=== PATIENT | female | born 1955 | race Hispanic/Latino ===

== ENCOUNTER 2018-06-05 12:34 | Observation (INO) | payer MEDICARE, BC ==
[2018-06-05 12:34] VITALS: BMI 33.5
[~2018-06-05 12:34] MED LIST: Gadodiamide 287 mg/ml 20 ml IV ONE
--- NOTE | 2018-06-05 12:51 | C.PDOC ---
History Of Present Illness 63 y/o female,w/PMhx of HTN, diabetes, hypercholesterolemia, thyroid cancer with thyroidectomy and now on synthroid, presents to the ER for evaluation of elevated blood pressure levels and tachycardia. Patient states that she was flor luated by yesterday and he gave her prescription for labs, MRI Brain, and MRI Head and Neck. Patient reports that she was also evaluated by her PMD in the morning today. noted that she had systolic BP in the 200's and she was tachycardic with HR in the 130's. Patient notes that she has distal tremors in bilateral arms. She states that her oncologist at [facility] is concerned that she could have de-supression of tumor. She is on Synthroid and the dosage was recently changed from 136 mcg to 125 mcg. She notes that she has diarrhea without recent abx use. Denies having fever,chills, CP,SOB, nausea, vomiting, abdominal pain, dysuria, hematuria,recent travel, bug bites,ETOH and other drug use. Time Seen by Provider: 06/05/18 12:41 Chief Complaint (Nursing): High Blood Pressure History Per: Patient History/Exam Limitations: no limitations Onset/Duration Of Symptoms: Hrs Current Symptoms Are (Timing): Still Present Severity: Moderate Past Medical History Reviewed: Historical Data, Nursing Documentation, Vital Signs - Medical History PMH: Asthma (NEVER HOSPITALIZED), Fractures (LEFT HUMERUS-SURGERY DONE), HTN Denies: Chronic Kidney Disease Other Surgeries: Hx of surgeries Family History: States: No Known Family Hx - Social History Hx Alcohol Use: No Hx Substance Use: No - Immunization History Hx Tetanus Toxoid Vaccination: No Hx Influenza Vaccination: No Review Of Systems Constitutional: Positive for: Other (elevated blood pressure). Negative for: Fever, Chills, Sweats, Weakness, Malaise Eyes: Negative for: Pain, Vision Change, Conjunctivae Inflammation ENT: Negative for: Ear Discharge, Nose Pain, Nose Congestion, Mouth Pain, Mouth Swelling, Throat Pain Cardiovascular: Positive for: Other (tachycardia). Negative for: Chest Pain, Palpitations, Orthopnea, Paroxysmal Noc. Dyspnea, Edema, Light Headedness Respiratory: Negative for: Cough, Shortness of Breath, Hemoptysis, SOB with Excertion, Pleuritic Pain, Sputum, Wheezing Gastrointestinal: Positive for: Diarrhea. Negative for: Nausea, Vomiting, Abdominal Pain, Constipation, Melena, Hematochezia, Hematemesis, Rectal Pain Genitourinary: Negative for: Dysuria, Frequency, Incontinence, Hematuria, Vaginal Discharge, Vaginal Bleeding Musculoskeletal: Negative for: Neck Pain, Shoulder Pain, Arm Pain, Back Pain, Hand Pain, Leg Pain Skin: Negative for: Rash, Lesions Neurological: Positive for: Other (tremors in bilateral arms). Negative for: Weakness, Numbness Physical Exam - Physical Exam Appears: Well, Non-toxic, No Acute Distress Skin: Warm, Dry Head: Atraumatic, Normacephalic Eye(s): bilateral: Normal Inspection, PERRL, EOMI Nose: Normal Oral Mucosa: Moist Tongue: Normal Appearing Lips: Normal Appearing Teeth: Normal Dentition Gingiva: Normal Appearing Neck: Trachea Midline, Supple, Other (no meningeal signs) Lymphatic: No Adenopathy Chest: Symmetrical Cardiovascular: Rhythm Regular, No Friction Rub, No Murmur, No JVD Respiratory: Normal Breath Sounds, No Rales, No Rhonchi, No Wheezing Gastrointestinal/Abdominal: Normal Exam, Soft, No Tenderness, No Guarding, No Rebound Back: No CVA Tenderness, No Vertebral Tenderness Extremity: Normal ROM, No Pedal Edema, No Swelling Neurological/Psych: Oriented x3, Normal Speech, Normal Cognition, Normal Motor Gait: Steady ED Course And Treatment - Laboratory Results Result Diagrams: 06/06/18 07:22 06/06/18 07:22 Medical Decision Making Medical Decision Makin63 y/o female,w/PMhx of HTN, diabetes, hypercholesterolemia, thyroid cancer with thyroidectomy, presents to the ER for evaluation of elevated blood pressure levels and tachycardia. Impression: Pheochromocytoma vs. Thyroid Issue Plan: --Labs --UA --MRI-Brain --MRA-Head --MRA-Neck 1549 no indication of thyroid storm by vitals however given hx of elevated pressures, ?residual CA, likely endocrine issue Appreciate consult w/ DR. florian: to see pt, MRI / MRAs ordered as directed appreciate consult w/ Prince Meek: to admit to his service (dr. rogers is PMD, admits to hospitalist.) pt in NAD, agreeable to plan Disposition - Disposition Disposition: HOSPITALIZED Disposition Time: 15:49 Condition: GOOD - Clinical Impression Clinical Impression: Endocrine disorder - Scribe Statement The provider has reviewed the documentation as recorded by the Scribe Tiffanie Mc Provider Attestation: All medical record entries made by the Scribe were at my direction and personally dictated by me. I have reviewed the chart and agree that the record accurately reflects my personal performance of the history, physical exam, medical decision making, and the department course for this patient. I have also personally directed, reviewed, and agree with the discharge instructions and disposition.
[2018-06-05 14:57] LABS: BASO % 0.4 % (0.0-2.0); EOS # 0.1 K/uL (0.0-0.7); EOS % 0.9 % (0.0-4.0); HEMOGLOBIN 14.3 g/dL (11.0-16.0); LYMPH % 31.9 % (20.0-40.0); MEAN CORPUSCULAR HEMOGLOBIN 31.9 pg (27.0-31.0); MEAN CORPUSCULAR HGB CONC 33.9 g/dL (33.0-37.0); MEAN PLATELET VOLUME 9.5 fL (7.2-11.7); MONO # 0.3 K/uL (0.0-0.8); MONO % 4.6 % (0.0-10.0); NEUT # 3.8 K/uL (1.8-7.0); NEUT % 62.2 % (50.0-75.0); NRBC % 0.2 % (0.0-2.0); RBC 4.5 Mil/uL (3.80-5.20); RED CELL DISTRIBUTION WIDTH 13.3 % (11.5-14.5); WHITE BLOOD COUNT 6.2 K/uL (4.8-10.8)
[2018-06-05 15:01] LABS: MEAN CELL VOLUME 94.1 fL (81.0-99.0)
[2018-06-05 15:07] LABS: ALB/GLOB RATIO 1.6 (1.0-2.1); ALBUMIN 5.3 g/dL (3.5-5.0); ALT/SGPT 50 U/L (9-52); AST/SGOT 37 U/L (14-36); BLOOD UREA NITROGEN 12 mg/dL (7-17); CALCIUM 9.8 mg/dl (8.6-10.4); GFR NON-AFRICAN AMERICAN > 60
[2018-06-05 15:38] LABS: T3 1.37 nmol/L (1.49-2.60)
--- NOTE | 2018-06-05 16:03 | CP.PCM.HP ---
<Corbin Hui - Last Filed: 06/05/18 17:01> History of Present Illness - History of Present Illness History of Present Illness: 63 y/o female,w/PMhx of HTN, diabetes, hypercholesterolemia, thyroid cancer with thyroidectomy, presents to the ER for evaluation of elevated blood pressure levels and tachycardia. Patient has been on a high dose Synthroid 136 regimen as per her Endo-Oncologist at [facility] Dr Romeo for tumor suppression. She has followed up with him about these side effects however was kept on a high level due to concerns of de suppression of the thyroid tumor. She has been having symptoms of tremors, diarrhea and intense Migraines for the past 3 months. She went to be evaluated by yesterday as per the recommendation of at [facility]. Patient reports she was instructed by her PMD today to come to the ER. noted that she had systolic BP in the 200's and she was tachycardic with HR in the 130's. ROS: Pos: diarrrhea, tremors, headaches, hyperreflexia, Neg: fever,chills, CP,SOB, nausea, vomiting, abdominal pain, dysuria, h ematuria, numbness, tingling, recent travel, bug bites,ETOH and other drug use. PMHx: HTN, diabetes, hypercholesterolemia, thyroid cancer with thyroidectomy PSx: thyroidectomy 2018 FH: father lung CA SocHx: denies etoh, smoking, drug use Home Meds: Present on Admission - Present on Admission Any Indicators Present on Admission: No Review of Systems - Constitutional Constitutional: As Per HPI - EENT Eyes: As Per HPI Ears: As Per HPI Nose/Mouth/Throat: As Per HPI - Breasts Breasts: As Per HPI - Cardiovascular Cardiovascular: As Per HPI - Respiratory Respiratory: As Per HPI - Gastrointestinal Gastrointestinal: As Per HPI - Genitourinary Genitourinary: As Per HPI - Reproductive: Female Reproductive:Female: As Per HPI - Menstruation Menstruation: As Per HPI - Musculoskeletal Musculoskeletal: As Per HPI - Integumentary Integumentary: As Per HPI - Neurological Neurological: As Per HPI - Psychiatric Psychiatric: As Per HPI - Endocrine Endocrine: As Per HPI - Hematologic/Lymphatic Hematologic: As Per HPI Past Patient History - Past Medical History & Family History Past Medical History?: Yes - Past Social History Smoking Status: Never Smoked - CARDIAC Hx Hypertension: Yes - PULMONARY Hx Asthma: Yes (NEVER HOSPITALIZED) - NEUROLOGICAL Hx Neurological Disorder: No - HEENT Hx HEENT Problems: No - RENAL Hx Chronic Kidney Disease: No - ENDOCRINE/METABOLIC Hx Endocrine Disorders: Yes Hx Diabetes Mellitus Type 2: Yes Other/Comment: HX: THYROID NODULE - HEMATOLOGICAL/ONCOLOGICAL Hx Blood Disorders: No Hx Cancer: Yes (Thyroid) - INTEGUMENTARY Hx Dermatological Problems: No - MUSCULOSKELETAL/RHEUMATOLOGICAL Hx Fractures: Yes (LEFT HUMERUS-SURGERY DONE) - GASTROINTESTINAL Hx Gastrointestinal Disorders: Yes Hx Gastroesophageal Reflux: Yes - GENITOURINARY/GYNECOLOGICAL Hx Genitourinary Disorders: No - PSYCHIATRIC Hx Substance Use: No - SURGICAL HISTORY Hx Surgeries: Yes Hx Orthopedic Surgery: Yes (REPAIR FX. LEFT HUMERUS) Hx Thyroidectomy: Yes Other/Comment: HX: EXPLORATORY LAP FOR FIBROIDS IN UTERUS - ANESTHESIA Hx Anesthesia: Yes Hx Anesthesia Reactions: No Hx Malignant Hyperthermia: No Meds Allergies/Adverse Reactions: Allergies Allergy/AdvReac Type Severity Reaction Status Date / Time aspirin Allergy Severe ANAPHYLAXIS Verified 05/26/16 12:50 Penicillins Allergy Severe ANAPHYLAXIS Verified 05/26/16 12:50 Sulfa (Sulfonamide Allergy Severe ANAPHYLAXIS Verified 05/26/16 12:50 Antibiotics) ceftriaxone [From Rocephin] Allergy Verified 06/05/18 12:56 cephalexin [From Keflex] Allergy Verified 06/05/18 12:56 morphine AdvReac Severe "HALLUCINAT Verified 05/26/16 12:50 IONS" Physical Exam - Constitutional Appears: Non-toxic - Head Exam Head Exam: ATRAUMATIC, NORMAL INSPECTION - Eye Exam Pupil Exam: Fixed, Miosis - ENT Exam ENT Exam: Mucous Membranes Moist - Neck Exam Neck exam: Negative for: Tenderness, Thyromegaly - Respiratory Exam Respiratory Exam: Clear to Auscultation Bilateral. absent: Rales, Stridor - Cardiovascular Exam Cardiovascular Exam: RRR, +S1, +S2 - GI/Abdominal Exam GI & Abdominal Exam: Normal Bowel Sounds. absent: Firm, Rebound, Tenderness - Extremities Exam Extremities exam: Positive for: full ROM, normal capillary refill, normal inspection - Neurological Exam Neurological exam: Alert, CN II-XII Intact, Oriented x3 Additional comments: reflexes 4+ bilaterally in brach rad, biceps, triceps mild tremor normal - Psychiatric Exam Psychiatric exam: Normal Affect, Normal Mood - Skin Skin Exam: Normal Color Results - Vital Signs Recent Vital Signs: Last Vital Signs Temp 98.4 F 06/05/18 12:50 Pulse 88 06/05/18 15:33 Resp 17 06/05/18 15:33 BP 136/82 06/05/18 15:33 Pulse Ox 95 06/05/18 15:33 - Labs Result Diagrams: 06/05/18 14:42 06/05/18 14:42 Labs: Laboratory Results - last 24 hr 06/05/18 06/05/18 06/05/18 13:33 14:42 14:42 WBC 6.2 RBC 4.50 Hgb 14.3 Hct 42.3 MCV 94.1 D MCH 31.9 H MCHC 33.9 RDW 13.3 Plt Count 276 MPV 9.5 Neut % (Auto) 62.2 Lymph % (Auto) 31.9 Angelina % (Auto) 4.6 Eos % (Auto) 0.9 Baso % (Auto) 0.4 Neut # (Auto) 3.8 Lymph # (Auto) 2.0 Angelina # (Auto) 0.3 Eos # (Auto) 0.1 Baso # (Auto) 0.0 Sodium 138 Potassium 3.8 Chloride 98 Carbon Dioxide 28 Anion Gap 17 BUN 12 Creatinine 0.7 Est GFR ( Amer) > 60 Est GFR (Non-Af Amer) > 60 POC Glucose (mg/dL) 122 H Random Glucose 133 H Calcium 9.8 Phosphorus 4.0 Magnesium 1.9 Total Bilirubin 0.7 AST 37 H ALT 50 Alkaline Phosphatase 81 C-Reactive Protein 6.90 Total Protein 8.6 H Albumin 5.3 H Globulin 3.3 Albumin/Globulin Ratio 1.6 Free T4 Thyroxine (T4) 11.5 H Free T3 pg/mL 3.10 Total T3 1.37 L TSH 3rd Generation 0.08 L 06/05/18 14:42 WBC RBC Hgb Hct MCV MCH MCHC RDW Plt Count MPV Neut % (Auto) Lymph % (Auto) Angelina % (Auto) Eos % (Auto) Baso % (Auto) Neut # (Auto) Lymph # (Auto) Angelina # (Auto) Eos # (Auto) Baso # (Auto) Sodium Potassium Chloride Carbon Dioxide Anion Gap BUN Creatinine Est GFR ( Amer) Est GFR (Non-Af Amer) POC Glucose (mg/dL) Random Glucose Calcium Phosphorus Magnesium Total Bilirubin AST ALT Alkaline Phosphatase C-Reactive Protein Total Protein Albumin Globulin Albumin/Globulin Ratio Free T4 1.22 Thyroxine (T4) Free T3 pg/mL Total T3 TSH 3rd Generation Assessment & Plan - Assessment and Plan (Free Text) Assessment: 63F hx of thyroidectomy and thyroid CA on suppressive synthroid therapy, admitted for tachycardia, hypertension with headaches Plan: Tachycardia secondary to Thyroid Suppression Therapy decreased synthroid to 125u daily f/u MRI and MRA with contrast Carvedilol 6.25 BID Valsartan/HCTZ home dose restarted Hypertension with Headaches Neuro Dr Lu Consulted: f/u recs carvedilol and Valsartan/hctz MgS 2g IVPB f/u MRA MRI f/u Echo DM Home Victoza restarted hold metformin ISS Low Hx of Thyroid CA cont Synthroid @ [address] Romeo at [facility] Ppx HHD SCDs encourage ambulation and patient activity <Trell Miller - Last Filed: 06/05/18 17:27> Results - Vital Signs Recent Vital Signs: Last Vital Signs Temp 98.4 F 06/05/18 12:50 Pulse 88 06/05/18 15:33 Resp 17 06/05/18 15:33 BP 136/82 06/05/18 15:33 Pulse Ox 95 06/05/18 15:33 - Labs Result Diagrams: 06/05/18 14:42 06/05/18 14:42 Labs: Laboratory Results - last 24 hr 06/05/18 06/05/18 06/05/18 13:33 14:42 14:42 WBC 6.2 RBC 4.50 Hgb 14.3 Hct 42.3 MCV 94.1 D MCH 31.9 H MCHC 33.9 RDW 13.3 Plt Count 276 MPV 9.5 Neut % (Auto) 62.2 Lymph % (Auto) 31.9 Angelina % (Auto) 4.6 Eos % (Auto) 0.9 Baso % (Auto) 0.4 Neut # (Auto) 3.8 Lymph # (Auto) 2.0 Angelina # (Auto) 0.3 Eos # (Auto) 0.1 Baso # (Auto) 0.0 ESR 22 H Sodium 138 Potassium 3.8 Chloride 98 Carbon Dioxide 28 Anion Gap 17 BUN 12 Creatinine 0.7 Est GFR ( Amer) > 60 Est GFR (Non-Af Amer) > 60 POC Glucose (mg/dL) 122 H Random Glucose 133 H Calcium 9.8 Phosphorus 4.0 Magnesium 1.9 Total Bilirubin 0.7 AST 37 H ALT 50 Alkaline Phosphatase 81 C-Reactive Protein 6.90 Total Protein 8.6 H Albumin 5.3 H Globulin 3.3 Albumin/Globulin Ratio 1.6 Vitamin B12 651 Free T4 Thyroxine (T4) 11.5 H Free T3 pg/mL 3.10 Total T3 1.37 L TSH 3rd Generation 0.08 L 06/05/18 14:42 WBC RBC Hgb Hct MCV MCH MCHC RDW Plt Count MPV Neut % (Auto) Lymph % (Auto) Angelina % (Auto) Eos % (Auto) Baso % (Auto) Neut # (Auto) Lymph # (Auto) Angelina # (Auto) Eos # (Auto) Baso # (Auto) ESR Sodium Potassium Chloride Carbon Dioxide Anion Gap BUN Creatinine Est GFR ( Amer) Est GFR (Non-Af Amer) POC Glucose (mg/dL) Random Glucose Calcium Phosphorus Magnesium Total Bilirubin AST ALT Alkaline Phosphatase C-Reactive Protein Total Protein Albumin Globulin Albumin/Globulin Ratio Vitamin B12 Free T4 1.22 Thyroxine (T4) Free T3 pg/mL Total T3 TSH 3rd Generation Attending/Attestation - Attestation I have personally seen and examined this patient.: Yes I have fully participated in the care of the patient.: Yes I have reviewed all pertinent clinical information: Yes
[2018-06-05] MEDS ORDERED: Dextrose 50% SYRINGE Inj (50 ml) IV PRN (16:57)
[2018-06-05] MEDS ORDERED: Glucagon Recombinant 1 mg Inj IM PRN (16:57)
--- NOTE | 2018-06-05 18:08 | CP.PCM.CON ---
History of Present Illness - History of Present Illness History of Present Illness: Neurology Consultation Note: Consult requested by Dr. Miller Mrs. Christie is a 63-year-old woman with a past medical history of HTN, DM, HLD, headaches, thyroid cancer s/p thyroidectomy and radiation, who I met for the first time in the office yesterday for her complaint of headaches. When I saw her, her SBP was elevated in the 190's range. I spoke with Dr. Crenshaw, her PMD, and we agreed to start her on Norvasc 5 mg in addition to her Diovan. She was hyper-reflexive, tachycardic and appeared to be having signs and symptoms of hyper-thyroidism. Her recent TSH was consistent with hyperthyroidism as well. I recommended going down on the levothyroxine to 125 mcg daily. I noted that her headaches were likely tension-type headaches due to the association of neck pain and point muscular tenderness and the quality of the pain she described. After some trigger point injections, she improved. However, today, her BP was el evated in the 200's range and she was again tachycardic. She was asked to come to the ED for evaluation by her PMD. I was concerned that her symptoms may be related to another underlying condition that may pertain to her previous history of radiation and requested an MRI of the brain be done with and without contrast as well as MRA of the head/neck. Review of Systems - Constitutional Constitutional: As Per HPI - EENT Eyes: absent: As Per HPI, Blind Spots, Blurred Vision, Change in Vision, Decreased Night Vision, Diplopia, Discharge, Dry Eye, Exophthalmos, Floaters, Irritation, Itchy Eyes, Loss of Peripheral Vision, Pain, Photophobia, Requires Corrective Lenses, Sees Flashes, Spots in Vision, Tunnel Vision, Other Visual Disturbances, Loss of Vision, Other Ears: absent: As Per HPI, Decreased Hearing, Ear Discharge, Ear Pain, Tinnitus, Abnormal Hearing, Disequilibrium, Dizziness, Other Nose/Mouth/Throat: absent: As Per HPI, Epistaxis, Nasal Congestion, Nasal Discharge, Nasal Obstruction, Nasal Trauma, Nose Pain, Post Nasal Drip, Sinus Pain, Sinus Pressure, Bleeding Gums, Change in Voice, Dental Pain, Dry Mouth, Dysphagia, Halitosis, Hoarsness, Lip Swelling, Mouth Lesions, Mouth Pain, Odynophagia, Sore Throat, Throat Swelling, Tongue Swelling, Facial Pain, Neck Pain, Neck Mass, Other - Cardiovascular Cardiovascular: As Per HPI - Respiratory Respiratory: absent: As Per HPI, Cough, Dyspnea, Hemoptysis, Dyspnea on Exertion, Wheezing, Snoring, Stridor, Pain on Inspiration, Chest Congestion, Excessive Mucous Production, Change in Mucous Color, Pain with Coughing, Other - Gastrointestinal Gastrointestinal: Diarrhea - Musculoskeletal Musculoskeletal: As Per HPI - Integumentary Integumentary: absent: As Per HPI, Acne, Alopecia, Bleeding Lesions, Change in Hair, Change in Nails, Change in Pigmentation, Changing Lesions, Dry Skin, Erythema, Furuncle, Hirsutism, Lesions, New Lesions, Non-Healing Lesions, Photosensitivity, Pruritus, Rash, Skin Pain, Skin Ulcer, Sores, Striae, Swelling, Unusual Bruising, Wounds, Jaundice, Other - Neurological Neurological: As Per HPI - Psychiatric Psychiatric: absent: As Per HPI, Abnormal Sleep Pattern, Anhedonia, Anxiety, Auditory Hallucinations, Behavioral Changes, Change in Appetite, Change in Libido, Confusion, Depression, Difficulty Concentrating, Hallucinations, Homicidal Ideation, Hopelessness, Irritability, Memory Loss, Mood Swings, Panic Attacks, Paranoia, Suicidal Ideation, Visual Hallucinations, Tactile Hallucinations, Other - Endocrine Endocrine: absent: As Per HPI, Change in Body Appearance, Change in Libido, Cold Intolorance, Deepening of Voice, Excessive Sweating, Fatigue, Flushing, Heat Intolorance, Increase in Ring/Shoe/Hat Size, Palpitations, Polydipsia, Polyphagia, Polyuria, Other Past Patient History - Past Medical History & Family History Past Medical History?: Yes - Past Social History Smoking Status: Never Smoked - CARDIAC Hx Hypertension: Yes - PULMONARY Hx Asthma: Yes (NEVER HOSPITALIZED) - NEUROLOGICAL Hx Neurological Disorder: No - HEENT Hx HEENT Problems: No - RENAL Hx Chronic Kidney Disease: No - ENDOCRINE/METABOLIC Hx Endocrine Disorders: Yes Hx Diabetes Mellitus Type 2: Yes Other/Comment: HX: THYROID NODULE - HEMATOLOGICAL/ONCOLOGICAL Hx Blood Disorders: No Hx Cancer: Yes (Thyroid) - INTEGUMENTARY Hx Dermatological Problems: No - MUSCULOSKELETAL/RHEUMATOLOGICAL Hx Fractures: Yes (LEFT HUMERUS-SURGERY DONE) - GASTROINTESTINAL Hx Gastrointestinal Disorders: Yes Hx Gastroesophageal Reflux: Yes - GENITOURINARY/GYNECOLOGICAL Hx Genitourinary Disorders: No - PSYCHIATRIC Hx Substance Use: No - SURGICAL HISTORY Hx Surgeries: Yes Hx Orthopedic Surgery: Yes (REPAIR FX. LEFT HUMERUS) Hx Thyroidectomy: Yes Other/Comment: HX: EXPLORATORY LAP FOR FIBROIDS IN UTERUS - ANESTHESIA Hx Anesthesia: Yes Hx Anesthesia Reactions: No Hx Malignant Hyperthermia: No Meds Allergies/Adverse Reactions: Allergies Allergy/AdvReac Type Severity Reaction Status Date / Time aspirin Allergy Severe ANAPHYLAXIS Verified 05/26/16 12:50 Penicillins Allergy Severe ANAPHYLAXIS Verified 05/26/16 12:50 Sulfa (Sulfonamide Allergy Severe ANAPHYLAXIS Verified 05/26/16 12:50 Antibiotics) ceftriaxone [From Rocephin] Allergy Verified 06/05/18 12:56 cephalexin [From Keflex] Allergy Verified 06/05/18 12:56 morphine AdvReac Severe "HALLUCINAT Verified 05/26/16 12:50 IONS" - Medications Medications: Current Medications Carvedilol (Coreg) 6.25 mg PO BID [place] Dextrose (Dextrose 50% Inj) 0 ml IV STAT PRN; Protocol PRN Reason: Hypoglycemia Protocol Dextrose (Glutose 15) 0 gm PO ONCE PRN; Protocol PRN Reason: Hypoglycemia Protocol Glucagon (Glucagen Diagnostic Kit) 0 mg IM STAT PRN; Protocol PRN Reason: Hypoglycemia Protocol Home Med (Liraglutide [Victoza 2-Nestor]) 1.8 mg SC DAILY [facility] Hydrochlorothiazide (Microzide) 12.5 mg PO DAILY [facility] Dextrose (Dextrose 5% In Water 1000 Ml) 1,000 mls @ 0 mls/hr IV .Q0M PRN; Protocol PRN Reason: Hypoglycemia Protocol Insulin Human Regular (Novolin R) 0 unit SC ACHS [facility]; Protocol Lamotrigine (Lamictal) 200 mg PO HS [facility] Levothyroxine Sodium (Synthroid) 125 mcg PO DAILY@0630 [facility] Losartan Potassium (Cozaar) 100 mg PO DAILY [facility] Mirtazapine (Remeron) 15 mg PO HS [facility] Montelukast Sodium (Singulair) 10 mg PO DAILY [facility] Rosuvastatin Calcium (Crestor) 10 mg PO HS [facility] Physical Exam - Constitutional Appears: Well - Head Exam Head Exam: ATRAUMATIC, NORMAL INSPECTION, NORMOCEPHALIC - Eye Exam Eye Exam: EOMI, Normal appearance, PERRL Pupil Exam: NORMAL ACCOMODATION, PERRL - ENT Exam ENT Exam: Mucous Membranes Moist, Normal Exam - Neck Exam Neck exam: Positive for: Normal Inspection - Respiratory Exam Respiratory Exam: Clear to Auscultation Bilateral, NORMAL BREATHING PATTERN - Cardiovascular Exam Cardiovascular Exam: REGULAR RHYTHM, +S1, +S2 - GI/Abdominal Exam GI & Abdominal Exam: Normal Bowel Sounds, Soft. absent: Tenderness - Extremities Exam Extremities exam: Positive for: normal inspection - Back Exam Back exam: NORMAL INSPECTION - Neurological Exam Neurological exam: Alert, CN II-XII Intact, Normal Gait, Oriented x3, Reflexes Normal - Psychiatric Exam Psychiatric exam: Normal Affect, Normal Mood - Skin Skin Exam: Dry, Intact, Normal Color, Warm Results - Vital Signs Recent Vital Signs: Last Vital Signs Temp 98.4 F 06/05/18 12:50 Pulse 108 H 06/05/18 17:43 Resp 20 06/05/18 17:43 BP 142/88 06/05/18 17:43 Pulse Ox 97 06/05/18 17:43 - Labs Result Diagrams: 06/05/18 14:42 06/05/18 14:42 Labs: Laboratory Results - last 24 hr 06/05/18 06/05/18 06/05/18 13:33 14:42 14:42 WBC 6.2 RBC 4.50 Hgb 14.3 Hct 42.3 MCV 94.1 D MCH 31.9 H MCHC 33.9 RDW 13.3 Plt Count 276 MPV 9.5 Neut % (Auto) 62.2 Lymph % (Auto) 31.9 [place] % (Auto) 4.6 Eos % (Auto) 0.9 Baso % (Auto) 0.4 Neut # (Auto) 3.8 Lymph # (Auto) 2.0 [place] # (Auto) 0.3 Eos # (Auto) 0.1 Baso # (Auto) 0.0 ESR 22 H Sodium 138 Potassium 3.8 Chloride 98 Carbon Dioxide 28 Anion Gap 17 BUN 12 Creatinine 0.7 Est GFR ( Amer) > 60 Est GFR (Non-Af Amer) > 60 POC Glucose (mg/dL) 122 H Random Glucose 133 H Calcium 9.8 Phosphorus 4.0 Magnesium 1.9 Total Bilirubin 0.7 AST 37 H ALT 50 Alkaline Phosphatase 81 C-Reactive Protein 6.90 Total Protein 8.6 H Albumin 5.3 H Globulin 3.3 Albumin/Globulin Ratio 1.6 Vitamin B12 651 Free T4 Thyroxine (T4) 11.5 H Free T3 pg/mL 3.10 Total T3 1.37 L TSH 3rd Generation 0.08 L 06/05/18 14:42 WBC RBC Hgb Hct MCV MCH MCHC RDW Plt Count MPV Neut % (Auto) Lymph % (Auto) [place] % (Auto) Eos % (Auto) Baso % (Auto) Neut # (Auto) Lymph # (Auto) [place] # (Auto) Eos # (Auto) Baso # (Auto) ESR Sodium Potassium Chloride Carbon Dioxide Anion Gap BUN Creatinine Est GFR ( Amer) Est GFR (Non-Af Amer) POC Glucose (mg/dL) Random Glucose Calcium Phosphorus Magnesium Total Bilirubin AST ALT Alkaline Phosphatase C-Reactive Protein Total Protein Albumin Globulin Albumin/Globulin Ratio Vitamin B12 Free T4 1.22 Thyroxine (T4) Free T3 pg/mL Total T3 TSH 3rd Generation Assessment & Plan (1) Headache Assessment and Plan: Likely tension-type headache, but will evaluate with an MRI of the brain for any underlying cause. MRA of the head/neck to evaluate for possible vascular etiology and to rule out any post-radiation vascular disease. Will also treat the headache with 2 grams of magnesium sulfate IV. Will consider other treatment based on the results of the MRI. Will defer to cardiology for management of tachycardia and hypertension. Thank you for this consultation. Status: Acute
[2018-06-05] MEDS: Magnesium Sulfate 1 gm in D5W 1 GM/100 ML BAG IVPB SCH (18:25)
[2018-06-05] MEDS ORDERED: Pantoprazole 20 mg EC Tab PO SCH (22:00)
[2018-06-05] MEDS ORDERED: (Novolin R) Insulin Human Regular 100 units/ml vial SC SCH (22:00)
[2018-06-06 00:25] VITALS: RESP 18
[2018-06-06] MEDS ORDERED: Levothyroxine 125 MCG TAB PO SCH (06:30)
[2018-06-06 06:36] VITALS: BP 145/73; PULSE 72; TEMP 98; O2SAT 94
[2018-06-06 07:41] LABS: BASO % 0.5 % (0.0-2.0); EOS # 0.1 K/uL (0.0-0.7); EOS % 1.9 % (0.0-4.0); HEMOGLOBIN 13.3 g/dL (11.0-16.0); LYMPH # 2.2 K/uL (1.0-4.3); MEAN CELL VOLUME 94.8 fL (81.0-99.0); MEAN CORPUSCULAR HGB CONC 33.8 g/dL (33.0-37.0); MEAN PLATELET VOLUME 8.9 fL (7.2-11.7); MONO # 0.4 K/uL (0.0-0.8); MONO % 6.5 % (0.0-10.0); NEUT # 2.9 K/uL (1.8-7.0); NEUT % 52.1 % (50.0-75.0); NRBC % 0.1 % (0.0-2.0); RBC 4.15 Mil/uL (3.80-5.20); RED CELL DISTRIBUTION WIDTH 13.6 % (11.5-14.5); WHITE BLOOD COUNT 5.6 K/uL (4.8-10.8)
[2018-06-06 07:54] LABS: ALB/GLOB RATIO 1.8 (1.0-2.1); ALBUMIN 4.7 g/dL (3.5-5.0); ALT/SGPT 41 U/L (9-52); AST/SGOT 30 U/L (14-36); BLOOD UREA NITROGEN 21 mg/dL (7-17); CALCIUM 9.3 mg/dl (8.6-10.4); GFR NON-AFRICAN AMERICAN > 60; HDL CHOLESTEROL 52 mg/dL (30-70)
[2018-06-06 07:56] LABS: INR 1.1; PROTHROMBIN TIME 11.5 SECONDS (9.7-12.2)
[2018-06-06 08:03] LABS: LDL CHOLESTEROL 41 mg/dL (0-129)
--- NOTE | 2018-06-06 09:01 | CP.PCM.DIS ---
Provider - Provider Date of Admission: 06/05/18 15:46 Attending physician: Trell Miller Consults: 06/05/18 17:19 Neurology Consult Routine Comment: Consulting Provider: Shivam Lu Consulting Physician: Shivam Lu Reason for Consult: htn w/ headaches, tachy, fixed pupils Time Spent in preparation of Discharge (in minutes): 45 Diagnosis - Discharge Diagnosis (1) Endocrine disorder Status: Chronic (2) Headache Status: Acute Hospital Course - Lab Results Lab Results: Most Recent Lab Values WBC 5.6 K/uL (4.8-10.8) 06/06/18 07:22 RBC 4.15 Mil/uL (3.80-5.20) 06/06/18 07:22 Hgb 13.3 g/dL (11.0-16.0) 06/06/18 07:22 Hct 39.3 % (34.0-47.0) 06/06/18 07:22 MCV 94.8 fL (81.0-99.0) 06/06/18 07:22 MCH 32.0 pg (27.0-31.0) H 06/06/18 07:22 MCHC 33.8 g/dL (33.0-37.0) 06/06/18 07:22 RDW 13.6 % (11.5-14.5) 06/06/18 07:22 Plt Count 252 K/uL (130-400) 06/06/18 07:22 MPV 8.9 fL (7.2-11.7) 06/06/18 07:22 Neut % (Auto) 52.1 % (50.0-75.0) 06/06/18 07:22 Lymph % (Auto) 39.0 % (20.0-40.0) 06/06/18 07:22 [place] % (Auto) 6.5 % (0.0-10.0) 06/06/18 07:22 Eos % (Auto) 1.9 % (0.0-4.0) 06/06/18 07:22 Baso % (Auto) 0.5 % (0.0-2.0) 06/06/18 07:22 Neut # (Auto) 2.9 K/uL (1.8-7.0) 06/06/18 07:22 Lymph # (Auto) 2.2 K/uL (1.0-4.3) 06/06/18 07:22 [place] # (Auto) 0.4 K/uL (0.0-0.8) 06/06/18 07:22 Eos # (Auto) 0.1 K/uL (0.0-0.7) 06/06/18 07:22 Baso # (Auto) 0.0 K/uL (0.0-0.2) 06/06/18 07:22 ESR 22 mm/hr (0-20) H 06/05/18 14:42 PT 11.5 SECONDS (9.7-12.2) 06/06/18 07:22 INR 1.1 06/06/18 07:22 APTT 33 SECONDS (21-34) 06/06/18 07:22 Sodium 137 mmol/L (132-148) 06/06/18 07:22 Potassium 4.4 mmol/L (3.6-5.2) 06/06/18 07:22 Chloride 99 mmol/L (98-107) 06/06/18 07:22 Carbon Dioxide 31 mmol/L (22-30) H 06/06/18 07:22 Anion Gap 12 (10-20) 06/06/18 07:22 BUN 21 mg/dL (7-17) H 06/06/18 07:22 Creatinine 0.7 mg/dL (0.7-1.2) 06/06/18 07:22 Est GFR ( Amer) > 60 06/06/18 07:22 Est GFR (Non-Af Amer) > 60 06/06/18 07:22 POC Glucose (mg/dL) 122 mg/dL (65-110) H 06/06/18 06:51 Random Glucose 128 mg/dL (65-105) H 06/06/18 07:22 Hemoglobin A1c 6.7 % (4.2-6.5) H 06/06/18 07:22 Calcium 9.3 mg/dl (8.6-10.4) 06/06/18 07:22 Phosphorus 4.0 mg/dL (2.5-4.5) 06/05/18 14:42 Magnesium 1.9 mg/dL (1.6-2.3) 06/05/18 14:42 Total Bilirubin 0.4 mg/dL (0.2-1.3) 06/06/18 07:22 AST 30 U/L (14-36) 06/06/18 07:22 ALT 41 U/L (9-52) 06/06/18 07:22 Alkaline Phosphatase 83 U/L (38-126) 06/06/18 07:22 C-Reactive Protein 6.90 mg/L (0.0-9.9) 06/05/18 14:42 Total Protein 7.4 g/dL (6.3-8.3) 06/06/18 07:22 Albumin 4.7 g/dL (3.5-5.0) 06/06/18 07:22 Globulin 2.7 gm/dL (2.2-3.9) 06/06/18 07:22 Albumin/Globulin Ratio 1.8 (1.0-2.1) 06/06/18 07:22 Triglycerides 247 mg/dL (0-149) H D 06/06/18 07:22 Cholesterol 116 mg/dL (0-199) 06/06/18 07:22 LDL Cholesterol Direct 41 mg/dL (0-129) 06/06/18 07:22 HDL Cholesterol 52 mg/dL (30-70) 06/06/18 07:22 Vitamin B12 651 pg/mL (239-931) 06/05/18 14:42 Free T4 1.22 ng/dL (0.78-2.19) 06/05/18 14:42 Thyroxine (T4) 11.5 ug/dL (5.5-11.0) H 06/05/18 14:42 Free T3 pg/mL 3.10 pg/mL (2.77-5.27) 06/05/18 14:42 Total T3 1.37 nmol/L (1.49-2.60) L 06/05/18 14:42 TSH 3rd Generation 0.08 mIU/L (0.46-4.68) L 06/05/18 14:42 - Hospital Course Hospital Course: 63 y/o female,w/PMhx of HTN, diabetes, hypercholesterolemia, thyroid cancer with thyroidectomy, presents to the ER for evaluation of elevated blood pressure levels and tachycardia. Patient has been on a high dose Synthroid 136 regimen as per her Endo[facility]cologist [facility] Dr Romeo for tumor suppression. She has followed up with him about these side effects however was kept on a high level due to concerns of de suppression of the thyroid tumor. She has been having symptoms o f tremors, diarrhea and intense Migraines for the past 3 months. She went to be evaluated by yesterday as per the recommendation of at [facility]. Patient reports she was instructed by her PMD today to come to the ER. noted that she had systolic BP in the 200's and she was tachycardic with HR in the 130's. ROS: Pos: diarrrhea, tremors, headaches, hyperreflexia, Neg: fever,chills, CP,SOB, nausea, vomiting, abdominal pain, dysuria, hematuria, numbness, tingling, recent travel, bug bites,ETOH and other drug use. PMHx: HTN, diabetes, hypercholesterolemia, thyroid cancer with thyroidectomy PSx: thyroidectomy 2017 FH: father lung CA SocHx: denies etoh, smoking, drug use Home Meds: PT was admitted for observation, Pt underwent MRI and MRA of brain and neck: showed no signs of acute pathology, Pt's synthroid was lowered to 125, pt also was started on Coreg 6.25 BID which brought down her BP to the 130s and her HR to the 80s. Spoke with Dr Crenshaw her PMD. Pt was given 1g of MgS IVPB as per neurology recs. Pt is to f/u with her Apparel Sales Leader Dr Romeo [facility] this is a summary please refer to [facility] for complete records Discharge Exam - Head Exam Head Exam: ATRAUMATIC, NORMAL INSPECTION, NORMOCEPHALIC - Additional Findings Additional findings: - Constitutional Appears: Non-toxic - Head Exam Head Exam: ATRAUMATIC, NORMAL INSPECTION - Eye Exam Pupil Exam: Fixed, Miosis - ENT Exam ENT Exam: Mucous Membranes Moist - Neck Exam Neck exam: Negative for: Tenderness, Thyromegaly - Respiratory Exam Respiratory Exam: Clear to Auscultation Bilateral. absent: Rales, Stridor - Cardiovascular Exam Cardiovascular Exam: RRR, +S1, +S2 - GI/Abdominal Exam GI & Abdominal Exam: Normal Bowel Sounds. absent: Firm, Rebound, Tenderness - Extremities Exam Extremities exam: Positive for: full ROM, normal capillary refill, normal inspection - Neurological Exam Neurological exam: Alert, CN II-XII Intact, Oriented x3 Additional comments: reflexes 4+ bilaterally in brach rad, biceps, triceps mild tremor normal - Psychiatric Exam Psychiatric exam: Normal Affect, Normal Mood - Skin Skin Exam: Normal Color Discharge Plan - Discharge Medications Prescriptions: Carvedilol [Coreg] 6.25 mg PO BID #14 tab lamoTRIgine [Lamictal] 200 mg PO HS #14 tab Levothyroxine [Synthroid] 125 mcg PO STAT #14 tab Liraglutide [Victoza 2-Nestor] 1.8 mg SC DAILY #14 pen.injctr Mirtazapine [Remeron] 15 mg PO HS #14 tab Montelukast [Singulair] 10 mg PO DAILY #14 tab Pantoprazole [Protonix EC Tab] 20 mg PO HS #14 ect Rosuvastatin Calcium [Crestor] 10 mg PO HS #14 tab Valsartan/Hydrochlorothiazide [Valsartan-Hctz 160-12.5 mg Tab] 1 tab PO DAILY #14 tablet - Follow Up Plan Condition: GOOD Disposition: HOME/ ROUTINE Instructions: Thyroid Cancer, Headache, Adult, Tachycardia, Liraglutide, Carv edilol, Lamotrigine, Levothyroxine, Mirtazapine, Montelukast, Pantoprazole, Rosuvastatin, Valsartan and Hydrochlorothiazide Additional Instructions: Please take the following medications as prescribed: Carvedilol [Coreg] 6.25 mg PO BID #14 tab lamoTRIgine [Lamictal] 200 mg PO HS #14 tab Levothyroxine [Synthroid] 125 mcg PO STAT #14 tab Liraglutide [Victoza 2-Nestor] 1.8 mg SC DAILY #14 pen.injctr Mirtazapine [Remeron] 15 mg PO HS #14 tab Montelukast [Singulair] 10 mg PO DAILY #14 tab Pantoprazole [Protonix EC Tab] 20 mg PO HS #14 ect Rosuvastatin Calcium [Crestor] 10 mg PO HS #14 tab Valsartan/Hydrochlorothiazide [Valsartan-Hctz 160-12.5 mg Tab] 1 tab PO DAILY #14 tablet Please follow up with Dr Lu your Neurologist within 7 days of discharge Please follow up with Dr Crenshaw your PMD within 7 days of discharge Please follow up with Dr Romeo your Apparel Sales Leader at [facility] within 7 days of discharge Be well and take care, it was a pleasure to take care of you Chase Hui DO
--- NOTE | 2018-06-06 09:42 | MRI ---
Date of service: 06/05/2018 PROCEDURE: MRI BRAIN WITH AND WITHOUT CONTRAST HISTORY: per neuro COMPARISON: None available. TECHNIQUE: Multiplanar, multisequence MR images of the brain were obtained with and without intravenous contrast enhancement (Omniscan 18 cc). FINDINGS: HEMORRHAGE: None DWI: No evidence of an acute or early subacute infarction. BRAIN PARENCHYMA: Normal corticomedullary differentiation appreciated throughout the cerebrum with the brainstem and cerebellum normal in intrinsic signal throughout. There is trace periventricular long TR hyperintensity primarily around the frontal horns with solitary punctate hyperintense long TR focus at the right temporoparietal region with all of these minimal white matter findings reflecting limited chronic microangiopathy. There is minimal expansion of the ventricular sulcal sternal spaces compatible with diffuse cerebral atrophy. These neuro degenerative changes less than expected for the patient's stated age. No suspicious signal changes seen throughout the olmedo matter diffusely. There is no mass effect or extra-axial collection and midline brain and appears within normal limits. ENHANCEMENT: No abnormal intracranial enhancement. VENTRICLES: Unremarkable. No hydrocephalus. CRANIUM: Unremarkable. ORBITS: Grossly unremarkable. PARANASAL SINUSES/MASTOIDS: Clear VASCULAR SYSTEM: Skull base flow voids intact. OTHER FINDINGS: None . IMPRESSION: Minimal diffuse cerebral atrophy and chronic microangiopathy identified, less than expected for the patient's stated age. No abnormal intracranial enhancement appreciated throughout. Concordant preliminary report from [facility], 03 14, 5:53 p.m..
--- NOTE | 2018-06-06 09:48 | MRI ---
Date of service: 06/05/2018 PROCEDURE: MR Angiography of the neck without contrast HISTORY: per neuro COMPARISON: None available. TECHNIQUE: 3D [id number] angiography of the neck was performed. Rotating maximum intensity projection images of the cervical carotid and vertebral arteries were generated. The origins of the common carotid arteries were not visualized, which is a limitation inherent to the non-contrast time of flight technique. FINDINGS: RIGHT CAROTID ARTERIES: Common Carotid Artery: Widely patent, no significant stenosis. Carotid Bifurcation: Normal. Internal Carotid Artery:Widely patent, no significant stenosis. External Carotid Artery (proximal branches): Normal. LEFT CAROTID ARTERIES: Common Carotid Artery: Widely patent, no significant stenosis. Carotid Bifurcation: Normal. Internal Carotid Artery:Widely patent, no significant stenosis. External Carotid Artery (proximal branches): Normal. VERTEBRAL ARTERIES: Right Vertebral Artery: Widely patent. Left Vertebral Artery: Widely patent. OTHER FINDINGS: None. IMPRESSION: Widely patent bilateral common and internal carotid arteries are identified in the neck without significant stenosis. Bilateral vertebral arteries are patent as well without significant stenosis apparent.
--- NOTE | 2018-06-06 09:58 | MRI ---
Date of service: 06/05/2018 PROCEDURE: Magnetic Resonance Angiography Brain HISTORY: per neuro COMPARISON: None available. TECHNIQUE: 3D time of flight MR angiography of the intracranial arteries was performed. Rotating maximum intensity projection images were generated. FINDINGS: INTERNAL CAROTID ARTERIES: Unremarkable. The skull base, petrous, cavernous and supraclinoid segments are bilaterally widely patient. ANTERIOR CEREBRAL ARTERIES: Unremarkable. A1 and A2 segments are widely patent. Smaller distal branches unremarkable, as visualized. MIDDLE CEREBRAL ARTERIES: Unremarkable. M1 and M2 segments are widely patent. Perisylvian branches grossly symmetric. POSTERIOR CIRCULATION: Basilar Artery: Unremarkable. Distal Vertebral Arteries: Left dominant vertebrobasilar circulation with minimally hypoplastic distal right vertebral artery appreciated. Posterior Cerebral Arteries: Unremarkable. Posterior Inferior Cerebellar Arteries: Unremarkable. ANEURYSM/ VASCULAR MALFORMATIONS: None. OTHER FINDINGS: None. IMPRESSION: Unremarkable MR angiography of the brain.
[2018-06-06] MEDS ORDERED: LIRAGLUTIDE 1.8 MG SC SCH ×2 (10:00)
[2018-06-06] MEDS ORDERED: Home Med 1 UNIT (Valsartan/Hydrochlorothiazide [Valsartan-Hctz 160-12.5 Mg Tab] 1 TAB) PO SCH (10:00)
--- NOTE | 2018-06-06 10:01 | CP.PCM.PN ---
<Laury Tracy P - Last Filed: 06/06/18 17:15> Subjective - Date & Time of Evaluation Date of Evaluation: 06/06/18 Time of Evaluation: 09:59 - Subjective Subjective: Progress note for Dr. Lu. Patient seen and examined at bedside. Patient is resting comfortably in bed, in no acute distress. She is feeling much better and has no complaints at this time. Denies headache, dizziness, nausea, vomiting, and change in vision. Objective - Vital Signs/Intake and Output Vital Signs (last 24 hours): Temp Pulse Resp BP Pulse Ox 98.0 F 72 18 145/73 94 L 06/06/18 06:00 06/06/18 06:00 06/06/18 06:00 06/06/18 06:00 06/06/18 06:00 - Medications Medications: Current Medications Alprazolam (Xanax) 0.5 mg PO BID PRN PRN Reason: Anxiety Carvedilol (Coreg) 6.25 mg PO BID [facility] Last Admin: 06/05/18 20:01 Dose: 6.25 mg Dextrose (Dextrose 50% Inj) 0 ml IV STAT PRN; Protocol PRN Reason: Hypoglycemia Protocol Dextrose (Glutose 15) 0 gm PO ONCE PRN; Protocol PRN Reason: Hypoglycemia Protocol Glucagon (Glucagen Diagnostic Kit) 0 mg IM STAT PRN; Protocol PRN Reason: Hypoglycemia Protocol Home Med (Liraglutide [Victoza 2-Nestor]) 1.8 mg SC DAILY [facility] Hydrochlorothiazide (Microzide) 12.5 mg PO DAILY [facility] Dextrose (Dextrose 5% In Water 1000 Ml) 1,000 mls @ 0 mls/hr IV .Q0M PRN; Protocol PRN Reason: Hypoglycemia Protocol Insulin Human Regular (Novolin R) 0 unit SC [facility]; Protocol Last Admin: 06/05/18 22:02 Dose: Not Given Lamotrigine (Lamictal) 200 mg PO HS [facility] Last Admin: 06/05/18 22:03 Dose: 200 mg Losartan Potassium (Cozaar) 100 mg PO DAILY [place] Mirtazapine (Remeron) 120 mg PO HS [facility] Last Admin: 06/05/18 22:50 Dose: 120 mg Montelukast Sodium (Singulair) 10 mg PO HS [facility] Last Admin: 06/05/18 21:59 Dose: 10 mg Pantoprazole Sodium (Protonix Ec Tab) 20 mg PO [facility] Last Admin: 06/05/18 22:01 Dose: 20 mg Rosuvastatin Calcium (Crestor) 10 mg PO [facility] Last Admin: 06/05/18 21:58 Dose: 10 mg - Labs Labs: 06/06/18 07:22 06/06/18 07:22 PT 11.5 SECONDS (9.7-12.2) 06/06/18 07:22 INR 1.1 06/06/18 07:22 APTT 33 SECONDS (21-34) 06/06/18 07:22 - Constitutional Appears: Non-toxic, No Acute Distress - Head Exam Head Exam: ATRAUMATIC, NORMOCEPHALIC - Eye Exam Eye Exam: EOMI, Normal appearance, PERRL - ENT Exam ENT Exam: Mucous Membranes Moist - Neck Exam Neck Exam: Normal Inspection - Respiratory Exam Respiratory Exam: NORMAL BREATHING PATTERN. absent: Respiratory Distress - Cardiovascular Exam Cardiovascular Exam: REGULAR RHYTHM, +S1, +S2 - GI/Abdominal Exam GI & Abdominal Exam: Soft, Normal Bowel Sounds. absent: Distended, Firm, Guarding, Tenderness - Extremities Exam Extremities Exam: Full ROM, Normal Inspection - Neurological Exam Neurological Exam: Alert, Awake, CN II-XII Intact, Oriented x3 Neuro motor strength exam: Left Upper Extremity: 5, Right Upper Extremity: 5, Left Lower Extremity: 5, Right Lower Extremity: 5 Additional comments: DTRs: Bicepts and brachioradialis 3+, patellar and Achilles 2+ - Psychiatric Exam Psychiatric exam: Normal Affect, Normal Mood - Skin Skin Exam: Dry, Normal Color, Warm Assessment and Plan - Assessment and Plan (Free Text) Plan: -MRI brain and MRA neck and brain unremarkable. -Follow up with Dr. Lu in office in [address] Aly Tracy, PGY-1 <Shivam Lu - Last Filed: 06/07/18 15:53> Objective - Vital Signs/Intake and Output Vital Signs (last 24 hours): Temp Pulse Resp BP Pulse Ox 98.0 F 72 18 145/73 94 L 06/06/18 06:00 06/06/18 06:00 06/06/18 06:00 06/06/18 06:00 06/06/18 06:00 - Labs Labs: 06/06/18 07:22 06/06/18 07:22 PT 11.5 SECONDS (9.7-12.2) 06/06/18 07:22 INR 1.1 06/06/18 07:22 APTT 33 SECONDS (21-34) 06/06/18 07:22 Assessment and Plan (1) Headache Status: Acute Attending/Attestation - Attestation I have personally seen and examined this patient.: Yes I have fully participated in the care of the patient.: Yes I have reviewed all pertinent clinical information, including history, physical exam and plan: Yes Notes (Text): I agree with the assessment and plan. The patient is doing well today and denies headache. Will follow up with Dr. Hassan for management of thyroid fu nction and will manage headache as an outpatient in the neurology clinic in 7-10 days.
[2018-06-06] MEDS ORDERED: Levothyroxine 125 MCG TAB PO ONE ×2 (10:15→10:45)
--- NOTE | 2018-06-06 12:38 | CARD ---
APPROVED REPORT Date of service: 06/05/2018 EKG Measurement Heart [id number] <Conclusion> Normal sinus rhythm Normal ECG
--- NOTE | 2018-06-06 14:59 | CARD ---
APPROVED REPORT Date of service: 06/06/2018 EXAM: Two-dimensional and M-mode echocardiogram with Doppler and color Doppler. Other Information Quality : GoodRhythm : Tachycardia INDICATION Cardiomyopathy RISK FACTORS Hypertension Hyperlipidemia Diabetes 2D DIMENSIONS IVSd0.9 (0.7-1.1cm)LVDd4.1 (3.9-5.9cm) PWd0.7 (0.7-1.1cm)LA Fmrpgi17 (18-58mL) LVDs2.3 (2.5-4.0cm)FS (%) 43.9 % LVEF (%)75.6 (>50%)LVEF (Trotter's)67.04 % M-Mode DIMENSIONS Left Atrium (MM)3.82 (2.5-4.0cm)IVSd0.73 (0.7-1.1cm) Aortic Root2.98 (2.2-3.7cm)LVDd5.18 (4.0-5.6cm) Aortic Cusp Exc.2.13 (1.5-2.0cm)PWd0.75 (0.7-1.1cm) FS (%) 44 %LVDs2.90 (2.0-3.8cm) LVEF (%)75 (>50%) Mitral Valve MV E Vlpmxafw70.9cm/sMV A Xkkutmgg78.9cm/sE/A ratio0.9 TDI Lateral E' Peak V9.32cm/sMedial E' Peak V5.77cm/sE/Lateral E'6.5 E/Medial E'10.6 Tricuspid Valve TR Peak Fbwxkvrx208ih/sTR Peak Gr.[id number] LEFT VENTRICLE The left ventricle is normal size. There is normal left ventricular wall thickness. The left ventricular function is normal. The left ventricular ejection fraction is within the normal range. No regional wall motion abnormalities noted. Both mitral annular velocities are depressed suggest underlying heart disease No left ventricle thrombus noted on this study. There is no ventricular septal defect visualized. There is no left ventricular aneurysm. There is no mass noted in the left ventricle. RIGHT VENTRICLE The right ventricle is normal size. There is normal right ventricular wall thickness. The right ventricular systolic function is normal. ATRIA The left atrium size is normal. The right atrium size is normal. The interatrial septum is intact with no evidence for an atrial septal defect. AORTIC VALVE The aortic valve is normal in structure and function. No aortic regurgitation is present. There is no aortic valvular stenosis. There is no aortic valvular vegetation. MITRAL VALVE The mitral valve is normal in structure and function. There is no evidence of mitral valve prolapse. There is no mitral valve stenosis. There is no mitral valve regurgitation noted. TRICUSPID VALVE The tricuspid valve is normal in structure and function. There is no tricuspid valve regurgitation noted. There is no tricuspid valve prolapse or vegetation. There is no tricuspid valve stenosis. PULMONIC VALVE The pulmonary valve is normal in structure and function. There is no pulmonic valvular regurgitation. There is no pulmonic valvular stenosis. GREAT VESSELS The aortic root is normal in size. The ascending aorta is normal in size. The pulmonary artery is normal. The IVC is normal in size and collapses >50% with inspiration. PERICARDIAL EFFUSION The pericardium appears normal. There is no pleural effusion. <Conclusion> The left ventricular function is normal. The left ventricular ejection fraction is within the normal range. Both mitral annular velocities are depressed suggest underlying heart disease
== END 2018-06-06 11:28 | disposition home or self-care (01) ==
LOC: C.ER 12:34 → EEVIPCON 15:46 → C.9E 15:46 → C.5S 17:51
PROVIDERS: ADMIT Hospitalist; ATTEND Hospitalist
DX: E89.0 Postprocedural hypothyroidism (principal); G44.209 Tension-type headache, unspecified, not intractable; R00.0 Tachycardia, unspecified; T38.1X5A Adverse effect of thyroid hormones and substitutes, initial encounter; I10 Essential (primary) hypertension; E11.9 Type 2 diabetes mellitus without complications; J45.909 Unspecified asthma, uncomplicated; K21.9 Gastro-esophageal reflux disease without esophagitis; E78.5 Hyperlipidemia, unspecified; E78.00 Pure hypercholesterolemia, unspecified; Z85.850 Personal history of malignant neoplasm of thyroid; Z92.3 Personal history of irradiation; Z80.1 Family history of malignant neoplasm of trachea, bronchus and lung
CPT/HCPCS: 36415; 70544; 70547; 70553; 80053; 80061; 82607; 82948; 83036; 83735; 84100; 84436; 84439; 84443; 84481; 85025; 85610; 85651; 85730; 86140; 93005; 93306; 99285; A9579; G0378; J3475

== ENCOUNTER 2018-07-19 13:37 | Emergency (ER) | payer BC, MEDICARE ==
[2018-07-19 13:37] VITALS: BMI 34.0
[2018-07-19 13:46] VITALS: BP 149/89; PULSE 91; RESP 18; TEMP 98.9; O2SAT 96
--- NOTE | 2018-07-19 14:19 | C.PDOC ---
History Of Present Illness Patient is a 63yo F with PMH thyroid CA s/p thyroidectomy, HTN, HLD, DM, migraine sent in today by Dr. Duff for worsening R calf pain. She has been experiencing this pain for the last 3 months, and had a negative Doppler when it first started. It sharply worsened last night when she lincoln from a seated position. She felt a squeezing pain in her calf that sent shooting pains up the back of her knee and thigh, just short of her buttocks. Ice, heat, and Tylenol did not make it better. Shaking it out, walking, and massaging it makes it better. Sitting for prolonged periods of time, such as during her commute, or when she first arises out of her chair at work, make it worse. The pain goes away after less than 5 minutes, but can be reproduced fully extending her knees. Denies numbness, tingling, pain on walking, chest pain, dizziness, unsteady gait, shortness of breathing, headache. Time Seen by Provider: 07/19/18 14:01 Chief Complaint (Nursing): Lower Extremity Problem/Injury History Per: Patient Onset/Duration Of Symptoms: Intermittent Episodes Current Symptoms Are (Timing): Gone - Knee Currently Unable To: Straighten Past Medical History Reviewed: Historical Data, Nursing Documentation, Vital Signs Vital Signs: Last Vital Signs Temp 98.9 F 07/19/18 13:43 Pulse 91 H 07/19/18 13:43 Resp 18 07/19/18 13:43 BP 149/89 07/19/18 13:43 Pulse Ox 96 07/19/18 13:43 - Medical History PMH: Asthma, Diabetes, Fractures (LEFT HUMERUS-SURGERY DONE), HTN, Hypercholesterolemia Denies: Chronic Kidney Disease Family History: States: Unknown Family Hx - Social History Hx Alcohol Use: No Hx Substance Use: No - Immunization History Hx Tetanus Toxoid Vaccination: No Hx Influenza Vaccination: No Hx Pneumococcal Vaccination: No Review Of Systems Constitutional: Negative for: Fever, Chills, Sweats, Weakness, Malaise Cardiovascular: Negative for: Chest Pain, Palpitations, Edema Respiratory: Negative for: Cough, Shortness of Breath, Wheezing Gastrointestinal: Negative for: Nausea, Vomiting, Abdominal Pain, Diarrhea, Constipation Genitourinary: Negative for: Dysuria, Frequency, Incontinence Neurological: Negative for: Weakness, Numbness, Incoordination, Confusion, Headache, Dizziness Psych: Negative for: Anxiety, Depression Physical Exam - Physical Exam Appears: Well, No Acute Distress Skin: Normal Color, No Warm (R leg cool to touch compared to L), Dry Head: Atraumatic, Normacephalic Eye(s): bilateral: PERRL, EOMI Cardiovascular: Rhythm Regular, No Edema, No Murmur Respiratory: Normal Breath Sounds, No Accessory Muscle Use, No Rales, No Rhonchi, No Wheezing Gastrointestinal/Abdominal: Normal Exam, Bowel Sounds, Soft, No Tenderness, No Distention, No Rebound Back: Normal Inspection, No CVA Tenderness Extremity: No Tenderness, No Pedal Edema, Calf Tenderness (Angelica's negative), Capillary Refill (< 2 sec), No Swelling Extremity: Bilateral: Atraumatic, No Pedal Edema Pulses: Left Dorsalis Pedis: Normal, Right Dorsalis Pedis: Normal DTR: Knee (R): 2+, Knee (L): 2+, Ankle (R): 2+, Ankle (L): 2+ Neurological/Psych: Oriented x3, Normal Speech, Normal Cognition, Normal Cranial Nerves ED Course And Treatment - Laboratory Results Result Diagrams: 07/19/18 14:33 O2 Sat by Pulse Oximetry: 96 Medical Decision Making Medical Decision Making: - labs - venous Doppler R: negative on re-eval, OMT ME and myofascial performed of the R hamstring, R gastrox with patient reporting improvement. Discussed with Dr. Duff who agrees with plan and management. Disposition Discussed With Dr.: Mp Duff Jr. Comment: findings discussed, and agrees with plan and management. can f/u outpatient and return if needed - Disposition Disposition Time: 15:16 Condition: IMPROVED Additional Instructions: Use cold, not hot, for muscular aches and pains. You may take ibuprofen if the pain worsens, but rest and massage are what's best. Please start exercising as intended; swimming is GREAT for all your medical conditions. Instructions: Lower Extremity Exercises Seated, Hamstring Muscle Strain (DC), Stretching Exercises for Your Lower Body Forms: [employer] (Surinamese) - Clinical Impression Clinical Impression: Hamstring tightness of right lower extremity
[2018-07-19 14:42] LABS: BASO % 0.5 % (0.0-2.0); EOS # 0.1 K/uL (0.0-0.7); EOS % 1.5 % (0.0-4.0); HEMOGLOBIN 12.9 g/dL (11.0-16.0); LYMPH % 37.7 % (20.0-40.0); MEAN CELL VOLUME 93.6 fL (81.0-99.0); MEAN CORPUSCULAR HGB CONC 34.2 g/dL (33.0-37.0); MEAN PLATELET VOLUME 8.8 fL (7.2-11.7); MONO # 0.3 K/uL (0.0-0.8); MONO % 5.2 % (0.0-10.0); NEUT # 2.9 K/uL (1.8-7.0); NEUT % 55.1 % (50.0-75.0); RBC 4.02 Mil/uL (3.80-5.20); RED CELL DISTRIBUTION WIDTH 13.3 % (11.5-14.5); WHITE BLOOD COUNT 5.2 K/uL (4.8-10.8)
[2018-07-19 14:58] LABS: ALB/GLOB RATIO 1.8 (1.0-2.1); ALBUMIN 4.8 g/dL (3.5-5.0); ALT/SGPT 43 U/L (9-52); AST/SGOT 29 U/L (14-36); BLOOD UREA NITROGEN 18 mg/dL (7-17); CALCIUM 9.9 mg/dl (8.6-10.4); GFR NON-AFRICAN AMERICAN > 60
--- NOTE | 2018-07-20 11:09 | VASCLAB ---
Date of service: 07/19/2018 PROCEDURE: Right Lower Extremity Venous Duplex Exam. HISTORY: calf tenderness PRIORS: None. TECHNIQUE: Right common femoral, femoral, popliteal and posterior tibial, peroneal and great saphenous veins were evaluated. Flow was assessed with color Doppler, compressibility, assessment of phasic flow and augmentation response. Report prepared by SHARAD Vaughn FINDINGS: RIGHT: 1. Common Femoral Vein: 1.1. Compressibility - Fully compressible: Thrombus - None: Flow - Phasic: Augmentation -Normal: Reflux - None. 2. Femoral Vein: 2.1. Compressibility - Fully compressible: Thrombus - None: Flow - Phasic: Augmentation -Normal: Reflux - None. 3. Popliteal Vein: 3.1. Compressibility - Fully compressible: Thrombus - None: Flow - Phasic: Augmentation -Normal: Reflux - None. 4. Posterior Tibial Vein: 4.1. Compressibility - Fully compressible: Thrombus - None: Flow - Phasic: Augmentation -Normal: Reflux - None. 5. Peroneal Vein: 5.1. Compressibility - Fully compressible: Thrombus - None: Flow - Phasic: Augmentation -Normal: Reflux - None. 6. Great Saphenous Vein: 6.1. Compressibility - Fully compressible: Thrombus -None: Flow - Phasic: Augmentation - Normal: Reflux - None. OTHER FINDINGS: Normal venous flow noted in the LEFT common femoral vein. IMPRESSION: No evidence of deep or superficial vein thrombosis of the right lower extremity with excellent venous flow. Normal valve function noted of the right side.
== END 2018-07-19 15:30 | disposition home or self-care (01) ==
LOC: C.ER 13:37
DX: M62.461 Contracture of muscle, right lower leg (principal); M62.89 Other specified disorders of muscle; E11.9 Type 2 diabetes mellitus without complications; I10 Essential (primary) hypertension; E78.00 Pure hypercholesterolemia, unspecified